=== PATIENT | male | born 1950 | race Caucasian/White ===

== ENCOUNTER 2019-06-20 10:51 | Outpatient (CLI) | payer MEDICARE, OTHER ==
--- NOTE | 2019-06-20 12:12 | RAD ---
SINUSES THREE VIEWS: INDICATIONS: Cough and sinus congestion. FINDINGS: The Water's view is suboptimally positioned. The paranasal sinuses appear well aerated and clear. No evidence of air-fluid level or abnormal opacification identified. IMPRESSION: No evidence of significant sinus mucosal disease. POS: [facility]
--- NOTE | 2019-06-20 12:13 | RAD ---
TWO VIEW CHEST: HISTORY: Cough. FINDINGS: The lungs appear clear of infiltrate. No evidence of significant effusion. Heart size is upper normal . Vascular markings are within the normal range. The osseous structures are unremarkable. IMPRESSION: No evidence of acute process. POS: [facility]
== END 2019-06-20 10:52 | disposition home or self-care (01) ==
LOC: BICRAD 10:51
PROVIDERS: ATTEND Internal Medicine
DX: R05 Cough (principal)
CPT/HCPCS: 70220; 71046

== ENCOUNTER 2019-08-23 07:01 | Outpatient (CLI) | payer MEDICARE, OTHER ==
--- NOTE | 2019-08-23 09:49 | ULT ---
ABDOMINAL ULTRASOUND COMPLETE: Date: 08/23/19 HISTORY: Left lower quadrant abdominal mass, protrusion, but without a focal palpable abnormality. No associat ed pain. 60 lb weight loss. FINDINGS: Status post cholecystectomy. Liver somewhat poorly seen because of body habitus. No overt liver loren s. Common bile duct 0.5 cm. Visualized pancreas, IVC, aorta, and spleen are unremarkable. No renal hy dronephrosis. No abscess or abnormal fluid collection. There is a nonshadowing calcification focus in the left kidney, possibly a renal calculus or vascular calcification. IMPRESSION: 1. Status post cholecystectomy. 2. No ductal dilatation. 3. Opacity in the left kidney without definite shadowing, possibly a small calculus or vascular calc ification. 4. No renal hydronephrosis. POS: [facility]
== END 2019-08-23 07:02 | disposition home or self-care (01) ==
LOC: SCSULT 07:01
PROVIDERS: ATTEND Internal Medicine
DX: R19.04 Left lower quadrant abdominal swelling, mass and lump (principal); Z90.49 Acquired absence of other specified parts of digestive tract; N28.89 Other specified disorders of kidney and ureter
CPT/HCPCS: 93975

== ENCOUNTER 2019-11-27 11:34 | Outpatient (CLI) | payer MEDICARE, OTHER ==
--- NOTE | 2019-11-27 12:00 | RAD ---
XR Chest Pa Lat STANDARD HISTORY: Cough COMPARISON: 06/20/2019 FINDINGS: The heart size is at upper limits of normal. The aorta is tortuous The lungs are well expan ded without focal areas of consolidation, pneumothorax or pleural effusions. IMPRESSION: No radiographic evidence of acute cardiopulmonary process.
--- NOTE | 2019-11-27 12:02 | RAD ---
XR Sinuses 3 View STANDARD HISTORY: Post sinus drainage COMPARISON: 06/20/2019 FINDINGS: The paranasal sinuses are well aerated. No air-fluid levels are seen. IMPRESSION: No evidence of acute sinusitis.
== END 2019-11-27 11:35 | disposition home or self-care (01) ==
LOC: BICRAD 11:34
PROVIDERS: ATTEND Internal Medicine
DX: R05 Cough (principal); R09.82 Postnasal drip
CPT/HCPCS: 70220; 71046

== ENCOUNTER 2020-02-22 13:24 | Outpatient (CLI) | payer MEDICARE ==
--- NOTE | 2020-02-23 10:46 | CT ---
CT ABDOMEN AND PELVIS WITH CONTRAST: COMPARISON: None. HISTORY: Left-sided abdominal wall bulging that began a few months ago. Abdominal discomfort and intentional weight loss. TECHNIQUE: Multiple contiguous axial images were obtained in a CT of the abdomen and pelvis with contrast. P.o. contrast was administered. Sagittal and coronal reformats were performed. FINDINGS: The patient is status post cholecystectomy. The liver, kidneys, adrenal gland, spleen, and pancreas are unremarkable. No free air, free fluid, or stranding changes are seen in the ad and pelvis. The large and small bowel are normal in caliber. Postsurgical changes are seen from multiple ventral hernia repairs. There is slight laxity of the abdominal musculature and fascia along the left side of the abdomen which is slightly more prominent than the right. No obvious hernia defect is seen jah ng the left abdominal wall. Atherosclerotic calcifications are seen in the aorta. No abdominal or pelvic lymphadenopathy are see n. Degenerative changes are seen in the spine. The Sacroiliac joints are fused. Atelectasis is see n in the lung bases. IMPRESSION: There is slight laxity/eventration of the left abdominal wall without a hernia is seen in this locati on. POS: [facility]
== END 2020-02-22 13:25 | disposition home or self-care (01) ==
LOC: SCSCT 13:24
PROVIDERS: ATTEND Internal Medicine Gastroenterology
DX: R10.9 Unspecified abdominal pain (principal); R63.8 Other symptoms and signs concerning food and fluid intake
CPT/HCPCS: 74177

== ENCOUNTER 2021-06-17 19:30 | Outpatient (CLI) | payer MEDICARE | END 2021-06-17 19:31 | disposition home or self-care (01) | LOC: SLEEPLAB 19:30 | PROVIDERS: ATTEND Internal Medicine Cardiovascular Disease | DX: R00.1 Bradycardia, unspecified (principal); I10 Essential (primary) hypertension; R06.83 Snoring; G47.00 Insomnia, unspecified; G47.10 Hypersomnia, unspecified; G47.31 Primary central sleep apnea | CPT/HCPCS: 95810 ==